=== PATIENT | female | born 1975 | race African-American/Black ===

== ENCOUNTER 2023-06-13 00:46 | Emergency (ER) | payer BC, OTHER ==
[2023-06-13 01:58] LABS: #Eosinphils 0.3 thou/uL (0.0-0.7); #Monocytes 0.3 thou/uL (0.11-0.59); #Neutrophils 4.6 thou/uL (1.40-6.50); %Basophils 0.5 % (0.0-1.0); %Eosinophils 3.4 % (0.0-10.0); %Lymphocytes 33.8 % (21.0-51.0); %Monocytes 4.2 % (0.0-10.0); Hematocrit 38.1 % (36.0-47.0); Hemoglobin 11.7 g/dL (12.0-16.0); Mean Corpuscular HGB CONC 30.7 g/dL (32.0-36.0); Mean Corpuscular Volume 87.8 fl (78.0-98.0); Mean Platelet Volume 10.9 fL (7.4-10.4); Platelet Count 300 10x3/uL (130-400); RBC Distribution Width 14.6 % (11.5-14.5); Red Blood Cell (RBC) Count 4.34 mill/uL (4.20-5.40)
[2023-06-13 02:22] LABS: ALT (SGPT) 10 U/L (8-55); AST (SGOT) 14 U/L (5-34); Alkaline Phosphatase 54 U/L (40-110); Anion Gap 15 mmol/L (10-20); BUN (Urea Nitrogen) 12 mg/dL (7.0-18.7); Bilirubin, Total 0.2 mg/dL (0.2-1.2); Calc. Creatinine Clearance 0 mL/min (70-130); Carbon Dioxide 21 mmol/L (22-29); Chloride 109 mmol/L (98-107); Estimated GFR 87; Globulin 2.6 g/dL (2.4-3.5); Glucose 88 mg/dL (70-105); Potassium 4.4 mmol/L (3.5-5.1); Protein, Total 6.6 g/dL (6.0-8.3); Sodium 141 mmol/L (136-145)
[2023-06-13 02:32] LABS: Troponin I Less than 0.010 ng/mL (< 0.028)
[2023-06-13] MEDS ORDERED: Ipratropium/Albuterol 3 ML NEB ONE (05:05)
[2023-06-13] MEDS ORDERED: Iopamidol 370 76% 100 ML VIAL ONE (09:20)
== END 2023-06-13 06:46 | disposition home or self-care (01) ==
LOC: ERS 00:46
DX: J18.9 Pneumonia, unspecified organism (principal)
CPT/HCPCS: 36415; 71045; 71275; 80053; 83880; 84484; 85025; 93005; J7620; Q9967